=== PATIENT | female | born 1950 | race African-American/Black ===

== ENCOUNTER 2016-02-20 12:30 | Outpatient (RCR) | payer BC | END 2016-03-18 | disposition home or self-care (01) | LOC: PTY 12:30 | DX: Z96.651 Presence of right artificial knee joint (principal) | CPT/HCPCS: 97110; 97140; G0283 ==

== ENCOUNTER 2016-03-21 14:00 | Outpatient (RCR) | payer BC | END 2016-04-15 | disposition home or self-care (01) | LOC: PTY 14:00 | DX: Z96.651 Presence of right artificial knee joint (principal) | CPT/HCPCS: 97110; 97140; G0283 ==

== ENCOUNTER 2016-04-21 10:30 | Outpatient (RCR) | payer BC | END 2016-05-16 | disposition home or self-care (01) | LOC: PTY 10:30 | DX: Z47.1 Aftercare following joint replacement surgery (principal); Z96.651 Presence of right artificial knee joint; M17.0 Bilateral primary osteoarthritis of knee | CPT/HCPCS: 97110; 97140; G0283 ==